=== PATIENT | female | born 1935 | race Caucasian/White ===

== ENCOUNTER 2016-09-11 11:13 | Emergency (ER) | payer OTHER, MEDICARE ==
[~2016-09-11] VITALS: Ht 170.2 cm; Wt 81.8 kg
[~2016-09-11 11:13] MED LIST: CATAPRES0.1 MG PO; NORVASC5 MG PO; TEKTURNA150 MG PO
[2016-09-11] MEDS ORDERED: AUGMENTIN875 MG PO (13:34)
[2016-09-11] MEDS ORDERED: TYLENOL WITH C1 EACH PO (13:34)
[2016-09-11 14:29] VITALS: BP 142/86
== END 2016-09-11 14:29 | disposition home or self-care (01) ==
LOC: EME → EDBD 11:13 → EME 11:13
PROC: 3E0234Z Introduction of Serum, Toxoid and Vaccine into Muscle, Percutaneous Approach (ICD-10-PCS; principal; 2016-09-11)
DX: S51.812A Laceration without foreign body of left forearm, initial encounter (principal); Z23 Encounter for immunization; W54.0XXA Bitten by dog, initial encounter
CPT/HCPCS: 99281; 99285; J0690; J3010; J7050